=== PATIENT | female | born 1945 | race Caucasian/White ===

== ENCOUNTER 2021-06-12 16:08 | Emergency (ER) | payer MEDICARE, SELFPAY ==
[2021-06-12 16:15] VITALS: BP 165/95; PULSE 87; RESP 16; TEMP 36.6; O2SAT 98
--- NOTE | 2021-06-12 16:32 | ED.SKABFB ---
HPI - Skin/Abscess/Foreign Bdy General Chief complaint: Skin/Abscess/Foreign Body Stated complaint: rash History of Present Illness HPI narrative: This is a 76-year-old female that has had a rash for over a week that is progressively getting worse with erythema and starting to itch. Patient states has been taking Benadryl but to no avail the symptoms continue to grow to fine erythema rash on bilateral arms legs arms chest wall and neck and started on her face patient denies being exposed to anything but she is not familiar if she had Related Data Home Medications Medication Instructions Recorded Confirmed Metamucil 1 dose PO DAILY 06/12/21 06/12/21 atorvastatin 10 mg PO DAILY 06/12/21 06/12/21 calcium carbonate-vitamin D3 1,200 mg PO DAILY 06/12/21 06/12/21 diclofenac sodium 75 mg PO DAILY PRN 06/12/21 06/12/21 irbesartan-hydrochlorothiazide 1 tablet PO DAILY 06/12/21 06/12/21 metformin 500 mg PO DAILY 06/12/21 06/12/21 Allergies Allergy/AdvReac Type Severity Reaction Status Date / Time No Known Drug Allergies Allergy Unknown Other Verified 06/12/21 16:32 Review of Systems Review of Systems: CONSTITUTIONAL: Denies fever, chills, or sweats. EYES: Denies visual changes, redness, or discharge. ENT: Denies rhinorrhea, congestion, sore throat, or otalgia. CARDIOVASCULAR:Denies chest pain, palpitations, or edema. RESPIRATORY: Denies cough or dyspnea. GASTROINTESTINAL: Denies abdominal pain, nausea, vomiting, or diarrhea. GENITOURINARY: Denies dysuria or hematuria. SKIN reports of fine erythema urticaria rash or itching. MUSCULOSKELETAL:Denies back pain, joint pain, or myalgia. NEUROLOGIC: Denies headache, numbness, or weakness. PSYCHIATRIC:Denies anxiety or depression PMFSH Family History Family History (Updated 04/05/18 @ 10:00 by DOCTOR UNKNOWN) Sibling Family history of colonic diverticulitis Other Cerebrovascular accident Hypertension Social History Social History Smoking status: Never smoker Alcohol intake: current Comments At time as signature, I have reviewed and agree with nursing past medical, social, surgical and family history. Please see nursing chart for further information. There is no relevant family history pertinent to the presenting complaint. Exam Narrative: GENERAL:Well-appearing, well-nourished, and in no acute distress. HEAD:Normocephalic, atraumatic. EYES: PERRLA and EOMI. ENT: Nares clear, no rhinorrhea or epistaxis. Mucous membranes moist. NECK: Supple. CHEST: Clear to auscultation. No respiratory distress. HEART: Regular rate and rhythm. ABDOMEN: Soft, nontender, EXTREMITIES: Normal range of motion. No edema. SKIN: Warm, dry, no rash. Erythema with time papule rash on bilateral arms legs arms and back starting on the face NEURO: No focal deficits. Alert and oriented x3. Course Vital Signs Vital signs: Vital Signs Temperature 98 F 06/12/21 16:15 Pulse Rate 87 06/12/21 16:15 Respiratory Rate 16 06/12/21 16:15 Blood Pressure 165/95 H 06/12/21 16:15 Pulse Oximetry 98 06/12/21 16:15 Temperature 98 F 06/12/21 16:15 Pulse Rate 87 06/12/21 16:15 Respiratory Rate 16 06/12/21 16:15 Blood Pressure 165/95 H 06/12/21 16:15 Pulse Oximetry 98 06/12/21 16:15 MDM - Skin/Abscess/Foreign Bdy Differential Diagnosis Differential diagnosis: Likely abscess of skin or subcutaneous tissue, viral exanthem, urticaria, herpes zoster, allergic reaction to drug, cellulitis, insect bites, impetigo and contact dermatitis Discharge Plan Discharge Clinical Impression: Contact dermatitis Qualifiers: Contact dermatitis type: allergic Contact dermatitis trigger: unspecified trigger Qualified Code(s): L23.9 - Allergic contact dermatitis, unspecified cause Patient Disposition: Home, Self-Care Condition: Stable Instructions: Antibiotic Form, Contact Dermatitis (ED), Anaphylaxis (ED), Allergies (ED) Additional Instructions: Use skin creams/loti
== END 2021-06-12 16:45 | disposition home or self-care (01) ==
PROVIDERS: Emergency Provider Nurse Practitioner Family; PCP Emergency Medicine
DX: L23.9 Allergic contact dermatitis, unspecified cause (principal); E78.00 Pure hypercholesterolemia, unspecified; I10 Essential (primary) hypertension; M19.90 Unspecified osteoarthritis, unspecified site; R73.03 Prediabetes
CPT/HCPCS: 99213; G0463